=== PATIENT | female | born 2000 | race Hispanic/Latino ===

== ENCOUNTER 2025-05-21 00:56 | Emergency (ER) | payer SELFPAY ==
[~2025-05-21] VITALS: Ht 180.3 cm; Wt 81.6 kg
--- NOTE | 2025-05-21 01:17 | ERN ---
ED Note History of Present Illness Stated Complaint: C/O RT LOWER BACK PAIN Chief Complaint: Back Pain-No Injury Time Seen by MD: 00:58 Time Seen by Midlevel: 00:58 Dictation: The patient is a 24-year-old female with no past medical history who presents to the emergency department with complaints of right flank pain onset yesterday associated with nausea. Patient denies any hematuria, denies any fevers. Denies any back trauma. Allergies: Coded Allergies: No Known Allergies (Unverified Allergy, Unknown, 05/21/25) Past Medical History Past Medical History: No Pertinent History Surgical History: None LMP: Apr 27, 2025 RN Note Reviewed/Agreed w/PFSH: Yes Review of System Dictation Constitutional: Negative for fever,chills, and weight loss Eyes: Negative for injury, pain,redness, and discharge ENT: Negative for injury,pain or swelling Cardiovascular: Negative for chest pain, palpitations, and edema Respiratory: Negative for shortness of breath, cough, and wheezing, Abdomen/GI: Negative for abdominal pain, , vomiting, diarrhea, and constipation positive for nausea Back: Negative for injury positive for right flank pain : Negative for injury, bleeding and discharge MS/Extremity: Negative for injury and deformity Skin: Negative for rash, and discoloration Neuro: Negative for headache, weakness, numbness, tingling, and seizure Psych: Negative for suicide ideation, homicidal ideation, and hallucinations Initial Vital Sign VS Vital Signs Date Time Temp Pulse Resp B/P (MAP) Pulse Ox O2 Delivery O2 Flow Rate FiO2 05/21/25 00:58 98.2 91 20 111/78 100 Room Air 05/21/25 01:12 0 21 Physical Exam Dictation Vital Signs reviewed General Appearance: Alert, oriented x 3, no acute distress, well developed, nourished. Head and Face: non-traumatic. Eyes: PERRL, pink conjunctivas, eyelid no trauma, anterior chamber with arcus senilis. Ears: Pinnas intact and no signs of trauma or erythema ear canals clear and no discharge TM no erythema Nose: No discharge, no bleeding. Oropharynx: Mouth normal, tongue pink. pharynx clear,no erythema, tonsils no exudates, no abscesses noted, mucous membrane moist Neck: Supple, non-tender, no thyromegaly, no masses, no JVD, no bruits Breast:Deferred Chest:No tenderness, no crepitus, no paradoxical movement, no retractions Lungs:Clear, well-ventilated, symmetric, no rales, no wheezing, no rhonchi, no stridor, good breath sounds bilaterally Heart: Regular rate, regular rhythm, no murmur, no gallops Vascular: no peripheral edema, Abdomen: Soft, positive bowel sounds, nondistended, no guarding, nontender, no rebound, no masses no hepatomegaly, no splenomegaly, no Hackett's sign, no hernias. Rectal: Deferred Genital: Deferred Neurological: Normal speech, motor function intact, sensory function intact Musculoskeletal: Neck nontender, full range of motion, back nontender, full range of motion, Extremities: nontender, full range of motion Skin: Color pink, dry, no turgor, no rash, no lacerations, no abrasions, no contusions. Lymphatic: Deferred Results (Laboratory/Radiology) Laboratory/Radiology Laboratory Tests Test 05/21/25 01:25 05/21/25 03:10 White Blood Count 8.3 K/uL (4.8-10.8) Red Blood Count 4.69 MIL/uL (4.00-5.50) Hemoglobin 11.5 g/dL (12.0-16.0) L Hematocrit 35.5 % (36-48) L Mean Corpuscular Volume 75.7 fL (79-99) L Mean Corpuscular Hemoglobin 24.5 pg (27.0-33.0) L Mean Corpuscular Hemoglobin Concent 32.4 g/dL (32.0-36.0) Red Cell Distribution Width 15.9 % (11.0-15.5) H Platelet Count 243 K/uL (130-400) Mean Platelet Volume 10.3 fL (7.5-10.5) Immature Granulocyte % (Auto) 0.1 % (0-1) Neutrophils (%) (Auto) 63.1 % (40.0-77.0) Lymphocytes (%) (Auto) 27.6 % (21.0-51.0) Monocytes (%) (Auto) 7.8 % (3.0-13.0) Eosinophils (%) (Auto) 1.2 % (0.0-8.0) Basophils (%) (Auto) 0.2 % (0.0-5.0) Neutrophils # (Auto) 5.2 K/uL (1.8-7.7) Lymphocytes # (Auto) 2.3 K/uL (1.0-4.8) Monocytes # (Auto) 0.7 K/uL (0.1-1.0) Eosinophils # (Auto) 0.10 K/uL (0.00-0.70) Basophils # (Auto) 0.02 K/uL (0.00-0.20) Absolute Immature Granulocyte (auto 0.01 K/uL (0-1) Nucleated Red Blood Cells 0.0 % (0.0-0.19) Red Blood Cell Morphology See comments Sodium Level 136 mmol/L (136-145) Potassium Level 3.5 mmol/L (3.5-5.1) Chloride Level 101 mmol/L (101-111) Carbon Dioxide Level 30 mmol/L (21-32) Blood Urea Nitrogen 11 mg/dL (7-18) Creatinine 0.9 mg/dL (0.5-1.0) Glomerular Filtration Rate Calc 93 mL/min (>90) Random Glucose 85 mg/dL (70-105) Total Calcium 8.7 mg/dL (8.5-10.1) Serum Test, Qualitative NEGATIVE (NEGATIVE) Urine Color LIGHT-YELLOW (YELLOW) Urine Appearance CLOUDY (CLEAR) H Urine pH 6.5 (5.0-8.0) Urine Specific [place] 1.006 (1.001-1.031) Urine Protein NEGATIVE mg/dL (NEGATIVE) Urine Glucose (UA) NEGATIVE mg/dL (NEGATIVE) Urine Ketones NEGATIVE mg/dL (NEGATIVE) Urine Occult Blood NEGATIVE (NEGATIVE) Urine Nitrate 2+ (NEGATIVE) H Urine Bilirubin NEGATIVE mg/dL (NEGATIVE) Urine Urobilinogen 0.2 mg/dL (0.2-1.0) Urine Leukocyte Esterase 75 Tanner/uL (NEGATIVE) H Urine RBC 2-5 /HPF (0-1) H Urine WBC 2-5 /HPF (0-1) H Urine Squamous Epithelial Cells MOD /HPF (0-2) Urine Bacteria RARE /HPF (None Seen) Labs Reviewed?: Yes ED Course ED Course Orders Procedure Category Date Status Time Cbc With Differential LAB 05/21/25 Complete 01:13 Urinalysis Profile LAB 05/21/25 Complete 01:13 0.9%Nacl 1000ml (Ns PHA 05/21/25 Complete 1000ml) 01:30 Morphine 4mg Syg PHA 05/21/25 Complete (Morphine 4mg Syg) 01:30 Ondansetron 4mg Inj PHA 05/21/25 Complete (Zofran 4mg Inj) 01:30 Basic Metabolic Panel LAB 05/21/25 Complete 01:13 Testing, LAB 05/21/25 Complete Serum Hcg 01:13 Ct Abdomen/Pelvis W/O CT 05/21/25 Taken Contrast 01:45 Culture Urine MONSTER 05/21/25 In Process 03:32 Orphenadrine Citrate PHA 05/21/25 Transmitted (Norflex) 04:00 Cefazolin Sodium 1 Gm PHA 05/21/25 Transmitted Vial (Ancef 1 Gm V 03:35 Current Medications Medications (Trade) Dose Ordered Sig/Daily Route PRN Reason Start Time Stop Time Status Last Admin Dose Admin Morphine Sulfate (morPHINE 4MG SYG) 4 mg ONCE ONCE IVP 05/21/25 01:30 05/21/25 01:31 DC 05/21/25 01:26 Ondansetron HCl (zoFRAN 4MG INJ) 4 mg ONCE ONCE IVP 05/21/25 01:30 05/21/25 01:31 DC 05/21/25 01:26 Sodium Chloride 1,000 ml @ 0 mls/hr ONCE ONCE IV 05/21/25 01:30 05/21/25 01:31 DC 05/21/25 01:26 Vital Signs Date Time Temp Pulse Resp B/P (MAP) Pulse Ox O2 Delivery O2 Flow Rate FiO2 05/21/25 01:12 99.1 85 18 128/84 98 Room Air* 0 21 05/21/25 00:58 98.2 91 20 111/78 100 Room Air Medical Decision Making MDM The patient is a 24-year-old female with no past medical history who presents to the emergency department with complaints of right flank pain onset yesterday associated with nausea. Patient denies any hematuria, denies any fevers. Denies any back trauma. Differential diagnosis: UTI, pyelonephritis, kidney stones Need for hospitalization: Patient does not meet criteria for hospitalization. There are no social concerns with this patient. Patient's laboratory analysis shows a urinary tract infection with a positive nitrite and a positive leukocyte esterase activity. I will give her a g of Ancef and discharge her with a prescription for nitr ofurantoin. DX & DISP Disposition: Discharge Departure Impression: Primary Impression: Urinary tract infection Condition: Stable Scripts Nitrofurantoin Macrocrystal (Nitrofurantoin) 100 Mg Capsule 1 CAP PO BID for 7 Days, #14 CAP 0 Refills Prov: KAYKAY MARTINEZ MD 05/21/25 TIMMY WHITE May 21, 2025 01:17 KAYKAY MARTINEZ MD May 21, 2025 03:38
[2025-05-21] MEDS: 0.9%NACL 1000ML 1,000 ML IV ONE (01:26)
[2025-05-21 01:31] LABS: IMMATURE GRANULOCYTE ABSOLUTE 0.01 K/uL (0-1); NUCLEATED RED BLOOD CELLS 0.0 % (0.0-0.19); PLATELET COUNT (AUTO) 243 K/uL (130-400); RED BLOOD CELL COUNT(AUTO) 4.69 MIL/uL (4.00-5.50); RED CELL DISTRIBUTION WIDTH 15.9 % (11.0-15.5); WHITE BLOOD COUNT (AUTO) 8.3 K/uL (4.8-10.8)
[2025-05-21 01:40] LABS: CREATININE 0.9 mg/dL (0.5-1.0); GLOMERULAR FILTR. RATE CALC 93.0 mL/min (>90); GLUCOSE,RANDOM 85.0 mg/dL (70-105); SODIUM SERUM 136.0 mmol/L (136-145); UREA NITROGEN, BLOOD 11.0 mg/dL (7-18)
[2025-05-21 03:23] LABS: APPEARANCE,URINE CLOUDY (CLEAR); GLUCOSE, URINE (UA) NEGATIVE (NEGATIVE); LEUKOCYTE ESTERASE ,URINE 75 Leu/uL (NEGATIVE); NITRATE,URINE 2+ (NEGATIVE); OCCULT BLOOD,URINE NEGATIVE (NEGATIVE)
[2025-05-21 03:31] LABS: ADD UA MICROSCOPIC YES
[2025-05-21 03:33] LABS: SQUAMOUS EPITHELIAL CELL,UR MOD /HPF (0-2)
[2025-05-21] MEDS ORDERED: NITR100C PO (03:37)
--- NOTE | 2025-05-21 03:40 | HMCIMG ---
EXAM: CT Abdomen and Pelvis without IV contrast CLINICAL HISTORY: Right flank pain. Rule out kidney stones. TECHNIQUE: Thin collimated axial CT images of the abdomen and pelvis were obtained, with sagittal and coronal reformatted images also submitted. A CT scan is done according to ALARA (As Low As Reasonably Achievable). CONTRAST: None. COMPARISON: None. FINDINGS: The included lungs are clear. No focal abnormality within the liver, gallbladder, pancreas, spleen, adrenals, or kidneys. Unremarkable urinary bladder. The uterus and ovaries are within normal limits. Trace free fluid in the cul-de-sac with mild fatty stranding in the pelvic peritoneum. No obvious bowel wall thickening, dilatation, or obstruction. Unremarkable appendix. A component of mild constipation is present in the colon. Limited evaluation of the abdominal vessels due to the lack of intravenous contrast. No abdominal aortic aneurysm is evident. No pathological lymphadenopathy in the abdomen or pelvis. No pneumoperitoneum. No acute bony abnormality is evident. IMPRESSIONS: Trace free fluid in the cul-de-sac with mild fatty stranding in the pelvic peritoneum. Correlation with the patient's menstrual history and ultrasound of the pelvis is recommended. A component of mild constipation is present in the colon. No renal, ureteral, or bladder calculus. The remaining organs are within normal limits. /Jhonathan
[2025-05-21] MEDS: ORPHENADRINE 60MG/2ML IVP ONE (03:45)
[2025-05-21 03:51] VITALS: BP 132/65; PULSE 80; RESP 18; TEMP 99.1; O2SAT 100
== END 2025-05-21 03:57 | disposition home or self-care (01) ==
LOC: EDH 00:56
DX: N39.0 Urinary tract infection, site not specified (principal)
CPT/HCPCS: 99285; 74176; 96374; 96375; 80048; 84703; 85025; 87086 ×2; 87186; 81001; 36415; J0690; J7030; J2405; J2270; J2360